=== PATIENT | male | born 1950 | race Caucasian/White ===

== ENCOUNTER 2022-10-20 23:48 | Observation (INO) ==
[2022-10-21] MEDS: DOXYcycline 100 MG in NS 0.9% 250 ml 250 ML IVPB SCH ×2 (03:28→15:55)
[2022-10-21 05:27] LABS: INR 1.7 (0.88-1.18)
[2022-10-21 05:51] LABS: Calcium 8.2 mg/dL (8.6-10.3); Magnesium 1.8 mg/dL (1.9-2.7); Potassium 3.8 mmol/L (3.5-5.0)
[2022-10-21 05:57] LABS: Creatinine, Serum 1.07 mg/dL (0.67-1.17); eGFR CKD-EPI 73.7 (>60)
[2022-10-21] MEDS ORDERED: Levothyroxine 100 MCG/5 ML VIAL IV SCH (06:00)
[2022-10-21 06:27] LABS: ABS Basophils 0.1 10^3/uL (0.0-0.1); ABS Eosinophils 0.2 10^3/uL (0.0-0.5); ABS Monocytes 0.5 10^3/uL (0.0-1.1); ABS Nucleated RBC 0.02 10^3/ul; Hematocrit 30.9 % (38-53); Hemoglobin 9.7 g/dL (13.2-16.3); Lymphocyte % 12.7 %; Mean Corpuscular Hemoglobin 21.7 pg (27-33); Mean Corpuscular Hgb Conc 31.3 g/dL (31-36); Mean Corpuscular Volume 69.4 fL (80-97); Mean Platelet Volume 9.6 fL (7.5-11.2); Nucleated Red Blood Cells % 0.3 /100 WBC (0.0-0.4); Platelet Count 156 10^3/uL (150-450); Red Blood Count 4.46 10^6/uL (4.06-5.63); Red Cell Distribution Width 19.7 % (12-17); White Blood Count 7.8 10^3/uL (3.6-10.2)
[2022-10-21 06:28] LABS: Anisocytosis 1+; Microcytosis 3+
[2022-10-21 07:13] LABS: TSH Ultra Thyroid Stim Horm 8.96 mcIU/mL (0.34-5.60)
[2022-10-21] MEDS ORDERED: Magnesium Sulfate IV 1GM/100ML 1 GM/100 ML BAG IV ONE (08:26)
[2022-10-21] MEDS ORDERED: Acetaminophen IV 1 GM/100ML 1,000 MG/100 ML BAG IV PRN (08:28)
[2022-10-21] MEDS: Enoxaparin 80 MG/0.8 ML SYR SUBCUT SCH ×2 (08:36→22:29)
[2022-10-21] MEDS ORDERED: Lactated Ringers 1000 ml BAG 1,000 ML IV SCH (09:00)
[2022-10-21] MEDS ORDERED: Levalbuterol HFA INHALER MDI INH PRN (10:38)
[2022-10-21] MEDS ORDERED: Enalaprilat IV 1.25 mg/ml 1 ml VIAL (1.25 MG) IV ONE (16:59)
[2022-10-21] MEDS ORDERED: cefTRIAXone 1 gm/50 mL D5W 1 GM/50 ML BAG IV SCH ×2 (22:00)
[2022-10-22] MEDS: DOXYcycline 100 MG in NS 0.9% 250 ml 250 ML IVPB SCH ×2 (02:54→14:31)
[2022-10-22 06:47] LABS: ABS Eosinophils 0.4 10^3/uL (0.0-0.5); ABS Lymphocytes 0.8 10^3/uL (1.0-4.8); ABS Monocytes 0.5 10^3/uL (0.0-1.1); ABS Neutrophils 5.4 10^3/uL (1.5-7.6); ABS Nucleated RBC 0.01 10^3/ul; Eosinophil % 5.2 %; Hematocrit 29.1 % (38-53); Hemoglobin 9.1 g/dL (13.2-16.3); Lymphocyte % 10.8 %; Mean Corpuscular Hemoglobin 22.1 pg (27-33); Mean Corpuscular Hgb Conc 31.2 g/dL (31-36); Mean Corpuscular Volume 70.9 fL (80-97); Mean Platelet Volume 9.8 fL (7.5-11.2); Nucleated Red Blood Cells % 0.2 /100 WBC (0.0-0.4); Platelet Count 168 10^3/uL (150-450); Red Blood Count 4.11 10^6/uL (4.06-5.63); Red Cell Distribution Width 19.5 % (12-17)
[2022-10-22 06:59] LABS: Calcium 8.2 mg/dL (8.6-10.3); Creatinine, Serum 0.87 mg/dL (0.67-1.17); Magnesium 1.8 mg/dL (1.9-2.7); Potassium 4.2 mmol/L (3.5-5.0); eGFR CKD-EPI 91.7 (>60)
[2022-10-22] MEDS: Enoxaparin 80 MG/0.8 ML SYR SUBCUT SCH (10:30)
[2022-10-22] MEDS ORDERED: Magnesium Sulfate 2 gm BAG 2 GM/50 ML BAG IVPB ONE (10:47)
[2022-10-22 10:55] VITALS: BP 150/73
[2022-10-22 15:45] LABS: High Sensitivity Troponin 1 Hr 45 pg/mL (<20)
== END 2022-10-22 16:15 | disposition home or self-care (01) ==
LOC: ED 23:48 → INTOOBSV 10-21 01:46 → EDHOLD 10-21 01:46 → SUATTDRO 10-21 01:46 → EDHOLD 10-21 13:46 → MED 10-21 14:40
PROVIDERS: ADMIT Internal Medicine; ATTEND Hospitalist